=== PATIENT | male | born 1965 | race Caucasian/White ===

== ENCOUNTER 2019-12-24 10:29 | Emergency (ER) | payer BC ==
[~2019-12-24] VITALS: Ht 180.3 cm; Wt 103.6 kg
[2019-12-24 10:34] VITALS: TEMP 99.3
[2019-12-24] MEDS ORDERED: ATIVAN 0.50.5 MG/TAB PO (11:57)
[2019-12-24 12:15] VITALS: BP 145/100; PULSE 117
== END 2019-12-24 12:15 | disposition home or self-care (01) ==
LOC: COL.ER 10:29
DX: R00.2 Palpitations (principal); R00.0 Tachycardia, unspecified